=== PATIENT | male | born 1985 | race African-American/Black ===

== ENCOUNTER 2022-03-08 07:20 | Emergency (ER) | payer BC, OTHER | END 2022-03-08 11:20 | disposition home or self-care (01) | LOC: ER1 07:20 | DX: S43.014A Anterior dislocation of right humerus, initial encounter (principal); V58.2XXA Person on outside of pick-up truck or van injured in noncollision transport accident in nontraffic accident, initial encounter | CPT/HCPCS: 23650; 73020; 73030; 96374; 99152; 99283; J1885; J2704 ==